=== PATIENT | male | born 1990 | race Caucasian/White ===

== ENCOUNTER 2017-01-20 12:10 | Emergency (ER) | payer SELFPAY ==
[2017-01-20 12:26] VITALS: BP 148/104
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
[2017-01-20] MEDS ORDERED: CEPHALEXIN 500 MG CAPSULE PO ONE (14:34)
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
== END 2017-01-20 17:33 | disposition home or self-care (01) ==
LOC: ER 12:10
DX: S00.81XA Abrasion of other part of head, initial encounter (principal); L03.211 Cellulitis of face; S63.91XA Sprain of unspecified part of right wrist and hand, initial encounter; S63.501A Unspecified sprain of right wrist, initial encounter; M25.539 Pain in unspecified wrist; M79.89 Other specified soft tissue disorders; R03.0 Elevated blood-pressure reading, without diagnosis of hypertension; F17.200 Nicotine dependence, unspecified, uncomplicated; V29.9XXA Motorcycle rider (driver) (passenger) injured in unspecified traffic accident, initial encounter
CPT/HCPCS: 99283; 73130; 73110; L3908